=== PATIENT | female | born 1960 | race Caucasian/White ===

== ENCOUNTER 2018-09-11 06:45 | Day surgery (SDC) | payer OTHER ==
[2018-09-11] MEDS ORDERED: CEFAZOLIN 2 GM/50 ML (PMX) 50 ML IVPB (07:00)
[2018-09-11] MEDS: BUPIVACAINE 0.5%/EPI (SDV) 30 ML INJ (12:14)
[2018-09-11] MEDS ORDERED: MEPERIDINE 100 MG INJ (12:20)
[2018-09-11] MEDS ORDERED: LIDOCAINE 2% (SDV) 5 ML INJ (12:20)
[2018-09-11] MEDS ORDERED: ONDANSETRON 4 MG INJ (12:20)
[2018-09-11] MEDS ORDERED: PROPOFOL 20 ML (12:20)
[2018-09-11] MEDS ORDERED: CEFAZOLIN 1 GM INJ (12:20)
[2018-09-11] MEDS ORDERED: METOCLOPRAMIDE 10 MG INJ (12:20)
[2018-09-11] MEDS ORDERED: MIDAZOLAM 1 MG/ML 2 ML INJ IV (13:30)
[2018-09-11] MEDS ORDERED: HYDROmorphONE 1 MG/5 ML IV SYRINGE IV ×2 (13:30)
[2018-09-11] MEDS ORDERED: LABETALOL HCL 20MG INJ IV (13:30)
[2018-09-11] MEDS ORDERED: METOCLOPRAMIDE 10 MG INJ IV (13:30)
[2018-09-11] MEDS ORDERED: ONDANSETRON 4 MG INJ IV ×2 (13:30→14:30)
[2018-09-11] MEDS ORDERED: MEPERIDINE 25 MG INJ IV (13:30)
[2018-09-11] MEDS ORDERED: hydrALAzine 20 MG INJ IV (13:30)
[2018-09-11] MEDS ORDERED: OXYCODONE/ACETAMINOPHEN (5/325) TAB PO ×2 (13:30)
[2018-09-11] MEDS ORDERED: FENTAnyl 50 MCG/ML VIAL IV ×3 (13:30)
[2018-09-11] MEDS ORDERED: DIPHENHYDRAMINE 50 MG INJ IV (13:30)
[2018-09-11] MEDS ORDERED: EPHEDrine SULFATE 50 MG/5 ML SYG IV (13:30)
[2018-09-11] MEDS ORDERED: KETOROLAC 30 MG INJ IV (14:30)
[2018-09-11] MEDS ORDERED: IBUPROFEN 600 MG TAB PO (14:30)
[2018-09-11] MEDS ORDERED: HYDROCODONE/APAP (5/325) TAB PO (14:30)
[2018-09-11] MEDS: HYDROmorphONE 1 MG/5 ML IV SYRINGE IV ×2 (14:43→14:49)
== END 2018-09-11 16:04 | disposition home or self-care (01) ==
LOC: SDS 06:45
DX: D24.2 Benign neoplasm of left breast (principal); E11.9 Type 2 diabetes mellitus without complications; E78.5 Hyperlipidemia, unspecified; K21.9 Gastro-esophageal reflux disease without esophagitis; Z86.718 Personal history of other venous thrombosis and embolism
CPT/HCPCS: 19125; 82962; 88307